=== PATIENT | male | born 2005 ===

== ENCOUNTER 2024-10-04 15:04 | Inpatient (IN) ==
[2024-10-04] MEDS ORDERED: IOPAMIDOL 100 ML BOTTLE IV ONE (15:05)
[2024-10-04] MEDS: HYDROmorphone 1 MG/ML SYRINGE IV ONE ×3 (15:56→20:24)
[2024-10-04] MEDS: 0.9 % SODIUM CHLORIDE 1,000 ML IV ONE (15:57)
[2024-10-04] MEDS: LACTATED RINGERS 1,000 ML IV ONE (18:01)
[2024-10-04 18:55] LABS: Lactate Dehydrogenase 143 U/L (135-225)
[2024-10-04] MEDS ORDERED: ACETAMINOPHEN 325 MG TABLET PO PRN (21:00)
[2024-10-04] MEDS ORDERED: POTASSIUM CHLORIDE 20 MEQ TABLET PO PRN ×2 (21:00)
[2024-10-04] MEDS ORDERED: ONDANSETRON 4 MG/2 ML VIAL IV PRN (21:00)
[2024-10-04] MEDS ORDERED: METOCLOPRAMIDE 10 MG/2 ML VIAL IV PRN (21:00)
[2024-10-04] MEDS ORDERED: POTASSIUM CHLORIDE 40 MEQ in DEXTROSE 5% IN WATER 500 ML IV PRN (21:00)
[2024-10-04] MEDS ORDERED: MAGNESIUM SULFATE 2 GM/50 ML BAG IV PRN (21:00)
[2024-10-04] MEDS: 0.9 % SODIUM CHLORIDE 1,000 ML IV SCH (21:36)
[2024-10-04] MEDS: HYDROmorphone 0.5 MG/0.5 ML SYRINGE IV PRN (21:36)
[2024-10-04] MEDS: 0.9 % SODIUM CHLORIDE 10 ML SYRINGE IV SCH (21:36)
[2024-10-04] MEDS: HYDROcodone/APAP 5/325MG TABLET PO PRN (23:45)
[2024-10-05 06:06] LABS: Basophils # (Auto) 0.01 K/mcL (0.00-0.30); Basophils % (Auto) 0.1 % (0.0-2.0); Eosinophils # (Auto) 0.09 K/mcL (0.00-0.70); Eosinophils % (Auto) 1.1 % (0.0-7.0); Hematocrit 43.3 % (40.1-51.0); Lymphocytes # (Auto) 1.23 K/mcL (1.50-4.80); Lymphocytes % (Auto) 14.9 % (15.5-49.0); Mean Cell Volume 86.1 fL (80.0-100.0); Mean Corpuscular HGB Conc 34.6 g/dL (31.0-36.0); Mean Platelet Volume 10.1 fL (8.8-12.5); Monocytes # (Auto) 0.92 K/mcL (0.10-0.90); Monocytes % (Auto) 11.1 % (1.0-12.0); Neutrophils % (Auto) 72.6 % (38.0-78.0); Platelet Count 239 K/mcL (140-440); RBC 5.03 M/mcL (4.63-6.08); WBC 8.3 K/mcL (4.5-11.0)
[2024-10-05 06:35] LABS: ALT/SGPT 17 U/L (<40); AST/SGOT 18 U/L (<40); Albumin 3.8 gm/dL (3.2-5.2); Albumin/Globulin Ratio 1.5 (1.0-2.3); Alkaline Phosphatase 57 U/L (39-117); Bilirubin,Direct 0.2 mg/dL (<0.3); Bilirubin,Total 0.5 mg/dL (0.1-1.0); Blood Urea Nitrogen 12 mg/dL (6-20); Calcium 8.6 mg/dL (8.6-10.4); Carbon Dioxide 25 mmol/L (22-30); Chloride 102 mmol/L (96-108); Globulin 2.6 gm/dL (2.2-3.7); Glomerular Filtration Rate 123; Glucose 104 mg/dL (70-105); Lactate Dehydrogenase 127 U/L (135-225); Phosphorous 4.2 mg/dL (2.5-4.5); Potassium 4.1 mmol/L (3.3-5.1); Sodium 138 mmol/L (133-145); Triglycerides 68 mg/dL (<125); Uric Acid 6.9 mg/dL (2.5-8.0)
[2024-10-05] MEDS ORDERED: GADOBENATE DIMEGLUMINE 15 ML/VIAL IV ONE (09:29)
[2024-10-05] MEDS: ENOXAPARIN 40 MG/0.4 ML SYRINGE SQ SCH (09:54)
[2024-10-06 09:21] VITALS: TEMP 98.5
[2024-10-06 09:27] VITALS: O2SAT 98
== END 2024-10-06 10:21 | disposition home or self-care (01) | DRG 440 ==
LOC: ED 15:04 → ICU 20:55
PROVIDERS: ADMIT Internal Medicine; ATTEND Internal Medicine